=== PATIENT | male | born 1980 | race African-American/Black ===

== ENCOUNTER → 2018-02-17 | Outpatient (CLI) | payer BC ==
[2018-02-17] MEDS: IOHEXOL 300 MG/ML 100ML VIAL. IV (17:00)
== END | disposition home or self-care (01) ==
LOC: CT 16:31
DX: I26.99 Other pulmonary embolism without acute cor pulmonale (principal); J98.11 Atelectasis; N62 Hypertrophy of breast; K76.0 Fatty (change of) liver, not elsewhere classified
CPT/HCPCS: 71275

== ENCOUNTER → 2018-03-04 | Outpatient (CLI) | payer BC ==
[~2018-03-04] MED LIST: IOHEXOL 300 MG/ML 100ML VIAL.
== END | disposition home or self-care (01) ==
LOC: ECHO 07:58
DX: R06.02 Shortness of breath (principal); R07.9 Chest pain, unspecified
CPT/HCPCS: 93306